=== PATIENT | male | born 1955 ===

== ENCOUNTER 2017-06-25 07:53 | Emergency (ER) | payer MEDICARE ==
[2017-06-25 07:53] VITALS: BMI 32.1
[2017-06-25] MEDS ORDERED: Sodium Chloride 0.9% 1,000 ML IV ONE ×2 (08:43→09:49)
[2017-06-25] MEDS ORDERED: Sodium Chloride 0.9% 1,000 ML ONE (08:50)
[2017-06-25 09:05] LABS: BASO % 0.8 % (0.0-2.0); EOS # 0.1 K/uL (0.0-0.7); EOS % 3.4 % (0.0-4.0); LYMPH # 0.7 K/uL (1.0-4.3); LYMPH % 19.2 % (20.0-40.0); MEAN CELL VOLUME 88.6 fL (80.0-94.0); MEAN CORPUSCULAR HEMOGLOBIN 30.3 pg (27.0-31.0); MEAN CORPUSCULAR HGB CONC 34.3 g/dL (33.0-37.0); MEAN PLATELET VOLUME 8.8 fL (7.2-11.7); MONO # 0.4 K/uL (0.0-0.8); MONO % 10.6 % (0.0-10.0); NEUT # 2.3 K/uL (1.8-7.0); NRBC % 0.1 % (0.0-2.0); RBC 4.93 Mil/uL (4.40-5.90); RED CELL DISTRIBUTION WIDTH 14.5 % (11.5-14.5); WHITE BLOOD COUNT 3.4 K/uL (4.8-10.8)
--- NOTE | 2017-06-25 09:09 | C.PDOC ---
History Of Present Illness 62 yr old male with PMHx of diabetes, presents to thr ER for feeling dizzy and blurry vision. Patient states he has not taken his diabetes medicine today, last dose was yesterday. Patient can not recall diabetes medication name. Denies fever, chest pain, SOB, nausea, vomiting, abdominal pain, diarrhea, weakness or numbness. Time Seen by Provider: 06/25/17 08:42 Chief Complaint (Nursing): Medical Clearance History Per: Patient History/Exam Limitations: no limitations Onset/Duration Of Symptoms: Sudden Onset Past Medical History Reviewed: Historical Data, Nursing Documentation, Vital Signs Vital Signs: Last Vital Signs Temp 98.2 F 06/25/17 10:53 Pulse 78 06/25/17 10:53 Resp 16 06/25/17 10:53 BP 119/72 06/25/17 10:53 Pulse Ox 96 06/25/17 12:41 - Medical History PMH: Arthritis, Asthma, Bronchitis, COPD, Depression, Diabetes, HTN, Hypercholesterolemia Surgical History: Endoscopy - [facility] Procedures ABD WALL MARVIN REPAIR NEC (06/28/06) COLONOSCOPY (03/25/14) EXERCISE TRMT MUSCULOSK LOW BACK/LE W ASSIST EQUIP (12/22/16) GAIT TRAINING/AMBULAT TREATMENT USING ASSIST EQUIPMENT (12/22/16) HOME MANAGEMENT TREATMENT USING ASSIST EQUIPMENT (12/22/16) REPLACE OF R KNEE JT WITH SYNTH SUB, CEMENT, OPEN APPROACH (12/19/16) TOTAL KNEE REPLACEMENT (07/20/14) Family History: States: No Known Family Hx - Social History Hx Tobacco Use: No Hx Alcohol Use: No Hx Substance Use: No - Immunization History Hx Tetanus Toxoid Vaccination: No Hx Influenza Vaccination: No Hx Pneumococcal Vaccination: No Review Of Systems Except As Marked, All Systems Reviewed And Found Negative. Constitutional: Negative for: Fever Eyes: Positive for: Vision Change (blurry vision) Cardiovascular: Negative for: Chest Pain Respiratory: Negative for: Shortness of Breath Gastrointestinal: Negative for: Nausea, Vomiting, Abdominal Pain, Diarrhea Neurological: Positive for: Dizziness. Negative for: Weakness, Numbness Physical Exam - Physical Exam Appears: Non-toxic, No Acute Distress Skin: Warm, Dry, No Rash Eye(s): bilateral: Normal Inspection, PERRL, EOMI Ear(s): Bilateral: Normal Oral Mucosa: Moist Lips: Normal Appearing Throat: Normal, No Erythema, No Exudate Cardiovascular: Rhythm Regular, No Murmur Respiratory: Normal Breath Sounds, No Rales, No Rhonchi, No Stridor, No Wheezing Gastrointestinal/Abdominal: Normal Exam, Soft, No Tenderness, No Guarding, No Rebound Extremity: Normal ROM, No Swelling Neurological/Psych: Oriented x3, Normal Speech ED Course And Treatment - Laboratory Results Result Diagrams: 06/25/17 08:59 06/25/17 08:59 O2 Sat by Pulse Oximetry: 96 (RA) Pulse Ox Interpretation: Normal Medical Decision Making Medical Decision Making: PLAN: * Labs * Sodium Chloride IV NOTE: * Repeat blood sugar after fluids are done The repeat finger stick is 286. On re-exam, the patient reports improvement of symptoms. Lungs are CTA, heart is RRR, abdomen is soft, non-tender and patient is tolerating PO well. Ambulatory in the ED with steady gait. Follow up with the medical doctor/clinic 1-2 days. Return if worsened. Disposition - Disposition Referrals: Jonathan Li MD [Non-Staff] - Disposition: HOME/ ROUTINE Disposition Time: 12:36 Condition: GOOD Additional Instructions: Follow up with the medical doctor within 1-2 days. Return if worsened. Instructions: Hyperglycemia, Non-Diabetic (ED) Forms: [employer] (Moroccan) - Clinical Impression Clinical Impression: Hyperglycemia - PA / DIRECTOR OF PARTNERSHIPS / Resident Statement MD/DO has reviewed & agrees with the documentation as recorded. - Scribe Statement The provider has reviewed the documentation as recorded by the Scribe Miriam Alberto All medical record entries made by the Scribe were at my direction and personally dictated by me. I have reviewed the chart and agree that the record accurately reflects my personal performance of the history, physical exam, medical decision making, and the department course for this patient. I have also personally directed, reviewed, and agree with the discharge instructions and disposition.
[2017-06-25 09:49] LABS: ALB/GLOB RATIO 1.4 (1.0-2.1); ALBUMIN 3.8 g/dL (3.5-5.0); ALT/SGPT 28 U/L (21-72); AST/SGOT 19 U/L (17-59); BLOOD UREA NITROGEN 13 mg/dL (9-20); CALCIUM 8.8 mg/dl (8.6-10.4); GFR AFRICAN-AMERICAN > 60; GFR NON-AFRICAN AMERICAN > 60
[2017-06-25] MEDS ORDERED: (Novolin R) Insulin Human Regular 100 units/ml vial SC STA (09:49)
[2017-06-25] MEDS ORDERED: (Novolin R) Insulin Human Regular 100 units/ml vial ONE (10:47)
[2017-06-25] MEDS ORDERED: (Novolin R) Insulin Human Regular 100 units/ml vial IV STA (10:59)
[2017-06-25 12:59] VITALS: BP 119/71; PULSE 72; RESP 18; TEMP 98.1; O2SAT 98
== END 2017-06-25 12:59 | disposition home or self-care (01) ==
LOC: C.ER 07:53
DX: E11.65 Type 2 diabetes mellitus with hyperglycemia (principal)
CPT/HCPCS: 80053; 82009; 82948; 85025; 96360; 96361; 99283; J7040